=== PATIENT | male | born 1945 | race Caucasian/White ===

== ENCOUNTER 2018-05-29 05:23 | Inpatient (IN) | payer OTHER ==
[2018-05-15 10:38] LABS: HEMATOCRIT 46.9 % (42.0-52.0); HEMOGLOBIN 16.8 gm/dL (14.0-18.0); MCH 35.1 pg (26.0-34.0); MCHC 35.7 g/dL (28.0-37.0); MCV 98.2 fL (80.0-100.0); RBC 4.78 mil/uL (4.50-6.00); RDW 12.8 % (10.5-14.5); WBC 8.1 thou/uL (4.0-11.0)
[2018-05-15 10:39] LABS: URINE BILIRUBIN NEGATIVE (Negative); URINE BLOOD NEGATIVE (Negative); URINE CLARITY CLEAR; URINE COLOR YELLOW; URINE GLUCOSE-RANDOM* NEGATIVE (Negative); URINE KETONES NEGATIVE (Negative); URINE LEUKOCYTES-REFLEX NEGATIVE (Negative); URINE NITRITE-REFLEX POSITIVE (Negative); URINE PROTEIN (DIPSTICK) NEGATIVE (Negative); URINE SPECIFIC GRAVITY 1.025 (1.005-1.035); URINE UROBILINOGEN 0.2 E.U./dl (0.2-1.0)
[2018-05-15 10:45] LABS: CALCIUM 9.8 mg/dL (8.5-10.1); CREATININE 1.5 mg/dL (0.7-1.3); POTASSIUM 3.9 mmol/L (3.5-5.1)
[2018-05-15 10:55] LABS: INR 1.1; PROTIME 11.5 Seconds (9.3-11.4)
[2018-05-15 11:03] LABS: CASTS None Seen /LPF (None Seen); CRYSTALS None Seen /LPF (None Seen); SQUAMOUS >10 Many /LPF (0-3)
[2018-05-15 11:04] LABS: URINE RBC None Seen /HPF (0-2); URINE WBC-REFLEX 0-5 Rare /HPF (0-5)
[~2018-05-29] VITALS: Ht 167.6 cm; Wt 96.6 kg
--- NOTE | ~2018-05-29 | O ---
[facility] [place] [address] OPERATIVE REPORT Name: LEXY WING Room #: 150-2 ADM IN M.R.#: [id number] Admission: 05/29/18 Attend Phys: Shiva Griggs Discharge: Date of : 47 Report #: [id number] THIS REPORT FOR: //name// CC: Shiva Mcrae DATE OF SERVICE: 05/29/2018 PREOPERATIVE DIAGNOSES: Right shoulder pain osteoarthritis, biceps tendinopathy, partial thickness rotator cuff tear. POSTOPERATIVE DIAGNOSES: Right shoulder osteoarthritis, biceps tendinopathy, glenoid bone loss, partial thickness articular-sided anterior supraspinatus rotator cuff tear. PROCEDURE PERFORMED: Right shoulder humeral head replacement, open biceps tenodesis, open rotator cuff repair. SURGEON: Shiva Denise M.D. TEST LEAD: Jackie Peace PA-C. ANESTHESIA: General with preoperative ultrasound-guided interscalene block, catheter was placed with indwelling catheter. FLUIDS: 1100 mL crystalloid. ESTIMATED BLOOD LOSS: Approximately 50 mL. IMPLANTS UTILIZED: [employer] size 12 porous coated stem with 135-degree size 12 proximal or porous coated body with a 52 x 18 eccentric humeral head. DESCRIPTION OF PROCEDURE: After proper identification of the patient and operative site in preoperative holding area, the operative site was signed by myself. Prophylactic antibiotics given. The patient elected to receive an ultrasound-guided block by Dr. Lan after reviewing the risks, benefits, alternatives and potential complications with her. We reviewed the patient's CT scan, discussed the thinning of the glenoid noted on exam as well as the retroversion. We discussed the potential that glenoid may not be able to be placed and this appears too thin to handle the glenoid prosthesis itself. We also reviewed the potential for reverse total shoulder or reverse total shoulder with bone grafting of the metaglene if he had a more substantial cuff tear than indicated on his preoperative studies. The patient and his were aware of these potential intraoperative decision making, general decision making, were comfortable proceeding with the above. The patient was brought back to the [address] [address] OPERATIVE REPORT Name: LEXY WING Room #: 150-2 ADM IN M.R.#: [id number] Admission: 05/29/18 Attend Phys: Shiva Griggs Discharge: Date of : 47 Report #: [id number] operative suite after induction of satisfactory general anesthesia, he was carefully positioned in the beachchair with head of bed elevated approximately 40 degrees. Right shoulder was sterilely prepped and draped in usual manner. Final skin draping was with Ioban. A [employer] limb positioning system was utilized throughout the entire procedure. Qualified cutter first was utilized throughout the entire procedure to aid in patient limb positioning, visualization and retraction of the soft tissues, instrument passage, closure and sling and dressing application. Anterior deltopectoral approach was planned. Skin was incised sharply. Full thickness skin flaps were developed. Deltopectoral interval and cephalic vein were identified. Vein was retracted laterally and preserved throughout the entire case. Subdeltoid adhesions were carefully released and Shah retractor was used to retract the soft tissues. At this point, biceps tendinopathy and tenosynovitis was noted. The upper border of the pectoralis major was released and subsequently repaired at the end of the procedure and the biceps was tenodesed to the undersurface of the pectoralis major using #2 FiberWire. Free end of the stump was then followed up into the bicipital groove and the rotator interval was opened. Anterior circumflex vessels were identified and ligated. A lesser tuberosity osteotomy was performed and the subscapularis and capsule were then released. There was an undersurface articular-sided tear of the supraspinatus that appeared occupied less than 50% of the tendon thickness and this was repaired at the end of the procedure with #2 FiberWire. Large humeral head spurs and numerous intraarticular loose bodies were noted. Peripheral spurs were carefully removed with rongeur. A 135-degree cutting guide was provisionally placed and the preoperative templating as well as a 3D templating with the [employer] planning software was utilized. At this point, the humeral head osteotomy was performed with an oscillating saw. Head measured 52 mm on the backtable, which was consistent with templating. Peripheral osteophytes were removed. The rotator cuff was otherwise intact other than what was noted previously. This was performed in approximately 25 degrees of retroversion, which matched his eyak version. Humeral canal was prepared up to a size 12 stem, which matched the templating and a broach was placed and was fully seated. A protection plate was applied. At this point, the humerus was then reduced and the anterior capsule, which was very thickened was bluntly dissected off the subscapularis with a right angle clamp and then released. The complex labral tear and remaining biceps were carefully released circumferentially. Multiple intraarticular loose bodies were present posteriorly within the axillary recess. Joint was thoroughly irrigated with normal saline. When evaluating the glenoid, the more anterior and posterior wall appeared to be thin enough that once reaming occurred, I was concerned that we would be left with a small bony area of support under the glenoid and that this would be under supported and potentially lead to early implant failure. Based on this and our discussion intraoperatively, the glenoid was left intact. A smooth more polished surface completely eburnated with no remaining chondral surface and trial and after the subscapularis had been carefully released and axillary nerve had been identified [facility] [address] [place] [address] OPERATIVE REPORT Name: MECCALEXY Tez Room #: 150-2 ADM IN M.R.#: [id number] Admission: 05/29/18 Attend Phys: Shiva Griggs Discharge: Date of : 47 Report #: [id number] and protected throughout the procedure and the soft tissue releases, the humerus was reduced with the 52 x 18 head and a 48 x 18 head that was eccentric. The 52 x 18 appeared to best recreate the proximal humeral anatomy and had better overall stability within the glenoid. Based on this, trial implants were removed. Four drill holes were placed in the anterior cortex of the humerus joint and bone surface was carefully irrigated with antibiotic irrigant. These areas were dried. Four #2 FiberWires were passed through the drill holes. Stem was assembled on the back table and impacted into position with the FiberWires passed around the stem. Next, a 52 x 18 head with the eccentricity placed more superiorly was positioned, it was impacted into position. Humerus was reduced. Subscapularis was repaired with four modified Epifanio-Haroon sutures and the patient had good external rotation to approximately 40 degrees. Axillary nerve was intact. The anterior supraspinatus was repaired with #2 FiberWire and the lateral portion of the rotator interval was repaired and closed with #2 FiberWire. Joint was stable throughout a full arc of motion. Pectoralis major had been repaired with #2 FiberWire. The joint was again thoroughly irrigated. Then, 1 gram of vancomycin powder was utilized half of it deep, half of it more superficial to minimize postoperative infection. A #1 Vicryl was used to close the deltopectoral interval, 2-0 Vicryl for the subcutaneous tissues followed by running 3-0 Monocryl in a subcuticular manner. Dermabond was then utilized to seal the wound. Sterile dressing was applied as well as a sling and abduction pillow that would be utilized for 4 weeks. The patient was awakened and transferred to the recovery room in stable condition. By: [id number] Shiva Denise MD /nt
[~2018-05-29 05:23] MED LIST: ASPIR 8181 M1 PO; ATORVASTATIN CA40 MG PO; BENICAR HCT 401 EAC1 PO; CENTRUM SILVER1 EAC2 PO; CIPRO500 MG PO; CRANBERRY PO; CRANBERRY TABL1 EACH PO; FISH OIL 1,001000 M2 PO; IBUPROFEN 400400 M2 PO; LIPITOR 20 MG T20 M1 PO; MAGNESIUM500 MG PO; MEN 50 PLUS MU1 EACH PO; NAPROSYN500 MG PO; VALSARTAN-HCTZ1 EAC3 PO; VITAMIN D PO; VITAMIN D35000 UNIT PO
[2018-05-29 06:41] VITALS: BP 128/70
[2018-05-29 16:59] VITALS: BP 139/68
[2018-05-29 19:17] VITALS: BP 127/78
[2018-05-30 03:08] VITALS: BP 141/70
[2018-05-30 05:10] LABS: HEMOGLOBIN 14.9 gm/dL (14.0-18.0)
[2018-05-30 05:23] LABS: POTASSIUM 3.5 mmol/L (3.5-5.1)
[2018-05-30 08:35] VITALS: BP 143/67
[2018-05-30 13:35] VITALS: BP 143/67
== END 2018-05-30 15:22 | disposition home or self-care (01) | DRG 483 ==
LOC: TBA 05:23 → 4E 05:23 → PRE 05:58 → 4E 13:30 → ENTRNSPT 05-30 14:46 → 4E 05-30 15:22
PROVIDERS: Orthopaedic Surgery Sports Medicine; Physician Assistant Surgical
PROC: 0RRJ0JZ Replacement of Right Shoulder Joint with Synthetic Substitute, Open Approach (ICD-10-PCS; principal; 2018-05-29)
PROC: 0LS30ZZ Reposition Right Upper Arm Tendon, Open Approach (ICD-10-PCS; principal; 2018-05-29)
DX: M19.011 Primary osteoarthritis, right shoulder (principal); M75.101 Unspecified rotator cuff tear or rupture of right shoulder, not specified as traumatic; K21.9 Gastro-esophageal reflux disease without esophagitis; Z82.49 Family history of ischemic heart disease and other diseases of the circulatory system; Z79.899 Other long term (current) drug therapy
CPT/HCPCS: 10783; 50010; 50101; 50172; 50386; 50417; 50697; 50733; 50935; 51751; 52138; 53000; 53078; 54118; 55430; 56521; 56524; 56525; 56526; 56530; 57095; 57103; 62110; 62900; 64041; 64043; 70005